=== PATIENT | female | born 1995 | race Caucasian/White ===

== ENCOUNTER 2022-11-28 13:18 | Outpatient (CLI) | payer BC | END 2022-11-28 13:19 | disposition home or self-care (01) | LOC: MRI 13:18 | PROVIDERS: ATTEND Psychiatry & Neurology Neurology | DX: G35 Multiple sclerosis (principal); R90.82 White matter disease, unspecified; M53.82 Other specified dorsopathies, cervical region | CPT/HCPCS: 70553; 72156 ==

== ENCOUNTER 2023-05-22 13:31 | Outpatient (CLI) | payer BC ==
[~2023-05-22 13:31] MED LIST: Magnevist 469MG/ML 20 ML VIAL ONE
== END 2023-05-22 13:32 | disposition home or self-care (01) ==
LOC: BICMRI 13:31
PROVIDERS: ATTEND Psychiatry & Neurology Neurology
DX: G35 Multiple sclerosis (principal); M47.814 Spondylosis without myelopathy or radiculopathy, thoracic region; R90.82 White matter disease, unspecified
CPT/HCPCS: 70553; 72156; 72157; A9579